=== PATIENT | male | born 1985 ===

== ENCOUNTER 2016-12-08 12:35 | Observation (INO) | payer OTHER ==
[2016-12-08] MEDS ORDERED: NS 0.9% 1000 ML* 1,000 ML IV ONE (12:48)
[2016-12-08] MEDS ORDERED: Midazolam* 1 MG/ML 5 ML VIAL (5 MG) ONE (12:49)
[2016-12-08] MEDS ORDERED: fentaNYL* 50 MCG/ML 2 ML VIAL (100 MCG VIAL) ONE (12:49)
[2016-12-08] MEDS ORDERED: Heparin 2 UNITS/ML IVPREMIX* 2,000 ML IV ONE (12:50)
[2016-12-08] MEDS ORDERED: nitroGLYCERIN DRIP* 250 ML ONE (12:50)
[2016-12-08] MEDS ORDERED: Lidocaine 1% INJ* 10 MG/ML 30 ML SDV ONE (12:50)
[2016-12-08] MEDS ORDERED: Iohexol 350 (CONTRAST) 200 ML MDV IV ONE (12:50)
[2016-12-08] MEDS ORDERED: Heparin VIAL(*) 5000 UNITS/ML VIAL (FIVE THOUSAND) ONE (12:50)
[2016-12-08] MEDS ORDERED: Heparin VIAL(*) 5000 UNITS/ML VIAL (FIVE THOUSAND) IV ONE (12:51)
[2016-12-08] MEDS ORDERED: Heparin(*) 1000 UNIT/ML 10 ML VIAL CATH LAB IV ONE (12:54)
[2016-12-08 12:55] LABS: Hematocrit 48 % (42-52); Hemoglobin 16.1 g/dl (14.0-18.0); Mean Corpuscular HGB Conc 33 g/dl (31-36); Mean Corpuscular Hemoglobin 29 pg (27-31); Mean Corpuscular Volume 87 fL (80-94); Mean Platelet Volume 8 um3 (7.4-10.4); Red Blood Count 5.54 10^6/ul (4.0-5.4); Red Cell Distribution Width 14 % (10.5-15); White Blood Count 6.9 10^3/ul (3.5-10.8)
[2016-12-08] MEDS ORDERED: VERAPAMIL 2.5 MG/ML 4 ML VIAL ONE (13:08)
[2016-12-08 13:15] LABS: Albumin 4.6 g/dL (3.2-5.2); BUN/Creatinine Ratio 11.2 (8-20); Calcium 9.7 mg/dL (8.6-10.3); EGFR Non-African American 80.1 (>60); Globulin 2.8 g/dL (2-4); Potassium 3.7 mmol/L (3.5-5.0); Total Bilirubin 0.7 mg/dL (0.2-1.0); Total Protein 7.4 g/dL (6.4-8.9)
--- NOTE | 2016-12-08 13:17 | RAD ---
INDICATION: Chest pain. COMPARISON: There are no prior studies available for comparison. TECHNIQUE: A portable view of the chest was obtained. FINDINGS: Cardiac and mediastinal contours appear to be within normal limits. The lungs are underinflated and clear. No pleural effusion is seen. IMPRESSION: NO EVIDENCE FOR ACUTE DISEASE.
[2016-12-08] MEDS ORDERED: NS 0.9% 1000 ML* 1,000 ML IV SCH (14:15)
[2016-12-08] MEDS ORDERED: Acetaminophen TAB* 325 MG PO PRN (14:47)
[2016-12-08] MEDS ORDERED: Omeprazole CAP* 20 MG PO ONE (17:30)
--- NOTE | 2016-12-08 17:32 | RAD ---
HISTORY: Epigastric pain after eating, right upper quadrant pain COMPARISONS: None TECHNIQUE: Multiple transverse and longitudinal ultrasound images were obtained of the right upper quadrant of the abdomen using grayscale and color Doppler imaging. FINDINGS: LIVER: The liver is diffusely echogenic and coarse in echotexture, with decreased acoustic transmission. The liver is otherwise normal in shape, size, and contour. There is normal hepatopedal flow of the portal vein on Doppler imaging. BILIARY TREE: There is no intrahepatic or extrahepatic biliary dilatation. The common duct measures 0.4 cm. GALLBLADDER: The gallbladder is well-visualized. There is no cholelithiasis, gallbladder wall thickening, pericholecystic fluid, or sonographic Azul sign. PANCREAS: The pancreas is obscured by overlying bowel gas. RIGHT KIDNEY: The right kidney is normal in shape, size, contour, and echogenicity. There is mild right pelviectasis. The right kidney measures 10.6 x 6.2 x 5.3 cm. AORTA AND IVC: The aorta and IVC are unremarkable. FLUID: There are no pleural effusions. There is no free fluid within the hepatorenal recess. OTHER FINDINGS: The bladder is unremarkable with bilateral ureteral jets IMPRESSION: 1. FATTY LIVER. 2. MILD RIGHT HYDRONEPHROSIS.
--- NOTE | 2016-12-08 17:47 | ED ---
Ever Sahu Adam, scribed for Mya Crump MD on 12/08/16 at 1257 . HPI Chest Pain - HPI Summary HPI Summary: Pt is a 31 year old male presenting with CP. The pain set on yesterday and it has been constant all morning today. Pt also c/o diaphoresis, fatigue, and anxiety. He reports a Hx of panic attacks and states that this feels similar. After arriving at [facility] the pt had an episode of syncope in which he began to twitch and became unresponsive for several seconds. EMS gave pt ASA en route to ED. Pt has PMHx of HTN and HLD. No FMHx. - History of Current Complaint Chief Complaint: EDChestPainROMI Time Seen by Provider: 12/08/16 12:47 Hx Obtained From: Patient Onset/Duration: Started Days Ago, Atraumatic, Still Present Timing: Constant Initial Severity: Moderate Current Severity: Moderate Chest Pain Location: Diffuse Aggravating Factor(s): Nothing Alleviating Factor(s): Nothing Associated Signs and Symptoms: Positive: Anxiety, Diaphoresis, Other: - Syncope , fatigue - Allergy/Home Medications Allergies/Adverse Reactions: Allergies Allergy/AdvReac Type Severity Reaction Status Date / Time Codeine Allergy Unknown Verified 11/06/15 09:06 Reaction Details Home Medications: Home Medications Atenolol [Atenolol] 25 mg PO DAILY 12/08/16 [History Confirmed 12/08/16] PMH/Surg Hx/FS Hx/Imm Hx Cardiovascular History: Reports: Hx Hypercholesterolemia, Hx Hypertension Infectious Disease History: No Infectious Disease History: Denies: Traveled Outside the [place] in Last 30 Days - Family History Known Family History: Positive: None - Patient denies any FMHx - Social History Occupation: Unemployed Lives: With Family - Father Alcohol Use: None Hx Substance Use: No Substance Use Type: Reports: None Hx Tobacco Use: No Smoking Status (MU): Never Smoked Tobacco Have You Smoked in the Last Year: No Review of Systems Positive: Fatigue, Skin Diaphoresis Positive: Chest Pain Positive: Syncope Positive: Anxious All Other Systems Reviewed And Are Negative: Yes Physical Exam Triage Information Reviewed: Yes Vital Signs On Initial Exam: Initial Vitals Temp Pulse Resp BP Pulse Ox 97.4 F 79 24 124/72 100 12/08/16 12:35 12/08/16 12:35 12/08/16 12:35 12/08/16 12:35 12/08/16 12:35 Vital Signs Reviewed: Yes Appearance: Positive: Well-Appearing, No Pain Distress Skin: Positive: Warm, Skin Color Reflects Adequate Perfusion, Dry Eyes: Positive: EOMI, YOLETTE ENT: Positive: Pharynx normal, TMs normal Neck: Positive: Supple, Nontender Respiratory/Lung Sounds: Positive: Clear to Auscultation, Breath Sounds Present. Negative: Rales, Rhonchi, Wheezes Cardiovascular: Positive: RRR. Negative: Murmur, Rub Abdomen Description: Positive: Nontender, Soft. Negative: Distended, Guarding Bowel Sounds: Positive: Present Musculoskeletal: Positive: Strength/ROM Intact. Negative: Edema Left, Edema Right Neurological: Positive: Sensory/Motor Intact, Alert, Oriented to Person Place, Time, CN Intact II-III Psychiatric: Positive: Affect/Mood Appropriate Diagnostics - Vital Signs Vital Signs Temp Pulse Resp BP Pulse Ox 12/08/16 12:35 97.4 F 79 24 124/72 100 - Laboratory Lab Results: Lab Results 12/08/16 Range/Units 12:45 WBC 6.9 (3.5-10.8) 10^3/ul RBC 5.54 H (4.0-5.4) 10^6/ul Hgb 16.1 (14.0-18.0) g/dl Hct 48 (42-52) % MCV 87 (80-94) fL MCH 29 (27-31) pg MCHC 33 (31-36) g/dl RDW 14 (10.5-15) % Plt Count 250 (150-450) 10^3/ul MPV 8 (7.4-10.4) um3 Neut % (Auto) 76.5 (38-83) % Lymph % (Auto) 15.8 L (25-47) % [place] % (Auto) 6.9 (1-9) % Eos % (Auto) 0.4 (0-6) % Baso % (Auto) 0.4 (0-2) % Absolute Neuts (auto) 5.3 (1.5-7.7) 10^3/ul Absolute Lymphs (auto) 1.1 (1.0-4.8) 10^3/ul Absolute Monos (auto) 0.5 (0-0.8) 10^3/ul Absolute Eos (auto) 0 (0-0.6) 10^3/ul Absolute Basos (auto) 0 (0-0.2) 10^3/ul Absolute Nucleated RBC 0.01 10^3/ul Nucleated RBC % 0.1 Result Diagrams: 12/08/16 12:45 12/08/16 12:45 Lab Statement: Any lab studies that have been ordered have been reviewed, and results considered in the medical decision making process. - Radiology CXR Radiology Interpretation Completed By: Radiologist - IMPRESSION: NO EVIDENCE OF ACUTE DISEASE. - EKG 12:42 Cardiac Rate: NL - 67 BPM EKG Interpretation: ST elevation vs J point 12:53 Cardiac Rate: NL - 76 BPM EKG Interpretation: ST elevation vs J point - Additional Comments Diagnostic Additional Comments: Lactic Acid - 2.2 Troponin I - 0.00 Chest Pain Course/Dx - Course Course Of Treatment: STEMI called at 12:42.'. 31 yo male who's ekg sent from the field with machine reading of MT, read as Jpoint, with cp for over a day, while waiting to be placed in a bed pt became diaphoretic and had a syncopal episode. given this finding along with the ekg a stemi was called. Pt was evaluated by Dr. De Leon and taken to the minilab operator. - Diagnoses Provider Diagnoses: CHEST PAIN Discharge - Discharge Plan Condition: Stable Disposition: ADMITTED TO [facility] The documentation as recorded by the Ever jackson Adam accurately reflects the service I personally performed and the decisions made by me, Mya Crump MD.
[2016-12-08] MEDS: LORazepam TAB(*) 0.5 MG PO PRN (19:41)
--- NOTE | 2016-12-08 20:10 | RAD ---
HISTORY: Right facial changes COMPARISONS: None TECHNIQUE: Multiple contiguous axial CT scans were obtained of the head without intravenous contrast. FINDINGS: HEMORRHAGE/INFARCT: There is no hemorrhage or acute infarct. MASSES/SHIFT: There is no mass or shift. EXTRA-AXIAL SPACES: There are no extra-axial fluid collections. SULCI AND VENTRICLES: The sulci and ventricles are normal in size and position for the patient's stated age. CEREBRUM: There are no focal parenchymal abnormalities. BRAINSTEM: There are no focal parenchymal abnormalities. CEREBELLUM: There are no focal parenchymal abnormalities. VESSELS: The vessels are grossly normal. PARANASAL SINUSES: The paranasal sinuses are clear. ORBITS: The orbits are unremarkable. BONES AND SOFT TISSUE: No bone or soft tissue abnormalities are noted. OTHER: None IMPRESSION: NO ACUTE INTRACRANIAL PATHOLOGY.
--- NOTE | 2016-12-09 00:40 | CONS ---
EMERGENCY ROOM CARDIOLOGY CONSULTATION: DATE OF CONSULT: 12/08/16 REASON FOR CONSULT: ST-segment elevation and anterior wall myocardial infarction was called by Dr. Mya Crump, emergency room physician. HISTORY OF PRESENT ILLNESS: The patient is a 31-year-old gentleman with no prior known cardiac history. Specifically, denies any history of myocardial infarction, congestive heart failure with significant heart rhythm disturbance. The patient was in his usual state of health until Thursday when he started having epigastric discomfort. He thinks it may have happened in the afternoon after he had eaten baloney sandwiches. The discomfort was underneath the sternum, almost like a bubble sensation with some tenderness and at times he felt the bubble moved up a little bit. It was intermittent in nature, did not seem to have any specific activity that brought it on or anything that made it better. Today, when he got up he noticed that he had it from the morning he got up. He recently been started also on atenolol 25 mg a day for hypertension , so he took his pill around 10 in the morning. He went to work and to get to work he walked up the hill to [place]. When he got in he sat down and he was diaphoretic. He states it is not unusual from him to be diaphoretic walking up the hill, but this one seemed to last longer and he also felt dizzy as well. He went to see the nurse if he could set up an appointment and he was scheduled to see the nurse at 11:30. When he went to see the nurse, she suggested that he should call his regular doctor as he was concerned and he recommended the patient be transported to the emergency room. In the ambulance , there were 3 EKGs that were performed and there was a question of ST segment elevation in the inferior leads as well as J-point elevation in precordial leads. When he presented to the emergency room, he was still having active symptoms. According to Dr. Crump she states that the patient nearly passed out when he first came into the emergency room. He does not seem to remember that well. His cardiac risk factors include a history of hypertension. He denies any hyperlipidemia. He denies any diabetes. He denies any smoking history and he has no family history of early coronary artery disease. He has taken medication in the past with Effexor for anxiety. PAST SURGICAL HISTORY: Significant only for an appendectomy in 1997. With his symptoms not relenting and with him appearing somewhat white and pale in appearance and anxious about the ongoing discomfort, I discussed with him the potential for performing a heart catheterization to rule out the presence of significant coronary artery disease, although the potential of absence of coronary artery disease was clearly a possibility. He understood the risks and benefits and wished to proceed. REVIEW OF SYSTEMS: Pertinent to proceeding directly emergently to the cardiovascular laboratory included the absence of hematochezia, hematemesis, or hematuria. He had no previous history of renal insufficiency or renal failure. He did not have any history of stroke or TIA. PHYSICAL EXAMINATION: When I saw him in the emergency room revealed blood pressure 124/72, pulse 79 and regular, respirations 24, O2 saturation 100% on room air, afebrile. Neck was supple. No increased JVP. Carotid with good upstroke and volume without bruits. Conjunctivae are pink. Sclerae were clear. Lungs revealed no accessory muscle usage. There is good excursion. Lungs are clear to A and P. Heart revealed no visible heaves, no palpable heaves or thrills. Normal S1, S2, no significant S3, S4, or gallop. No significant systolic or diastolic murmur. Abdomen was soft, nontender. Of note , the epigastric area was not tender on my examination at that time. Extremities: Without clubbing, cyanosis, [place]enix pitting edema. Peripheral pulses were intact. Femoral pulse noted without bruits. Neuro: The patient is alert and oriented with normal mentation. Musculoskeletal: The patient moves all extremities appropriate. Psychological: The patient significantly anxious. Skin: The patient appear to be cool and slightly clammy with a pale complexion. DIAGNOSTIC STUDIES/LAB DATA: Electrocardiogram done revealed very subtle J- point elevation in V2, V3, V4, and V5 with no definitive reciprocal changes. Subtle inferior J-point elevation was seen as well. Repeat EKG showed consistent finding with 1 PVC seen. Blood work for laboratory results was just drawn. OVERALL ASSESSMENT: Mr. Gilbert now presents still appearing somewhat ill appearing complaining about the persistent chest pressure and heaviness sensation in the chest area. The risks and benefits of cardiac catheterization were explained to him and he understood and he wished to proceed to get a definitive answer regarding the presence or absence of coronary artery disease. I did explain that if it was absent, other possible causes would need to be considered regarding the etiology of this. He understood that we will adjust management pending results of the cardiac catheterization. CC: Dr. Monique Alvarez* [id number]/[facility] #: [id number] CELINE
--- NOTE | 2016-12-09 00:58 | HP ---
HISTORY AND PHYSICAL: DATE OF ADMISSION: 12/08/16 PRIMARY CARE PROVIDER: Dr. Alvarez. CHIEF COMPLAINT: Chest pain. HISTORY OF PRESENT ILLNESS: Mr. Gilbert is a 31-year-old male, who on the day prior to admission began having epigastric discomfort. He states that it became much worse after eating 2 Bologna sandwiches with mayonnaise on them at approximately 2 p.m. yesterday. The patient states the night prior to the onset of epigastric pain, he had chicken, also had mayonnaise in it. The patient states the pain was at low level when he went to bed last evening. When the patient woke up on the morning of admission, he states the pain had moved from epigastrium to the left side of his chest. He describes it as a dull constant pain. He presented to the emergency room because of that. The patient had no associated shortness of breath or nausea. In the emergency room , the patient suddenly felt as if he had a tremendous amount of anxiety. He felt drowsy. He became quite sweaty and the staff noted him to become pale. Nursing notes indicate that he went unresponsive; however, the patient states that he does not believe that he did. The patient at that point was rushed back to the ER room where an EKG was performed. A STEMI was called and the patient was taken to the catheterization lab. The patient underwent cardiac catheterization with Dr. De Leon who identified clean coronary arteries. At that point, the decision was made to have hospitalist admit the patient for evaluation. The patient now post catheterization states that he continues to have dull left-sided chest discomfort. He states the discomfort is worse when he has a feeling as if he needs to have a bowel movement. He has had a persistent sensation that he needs to have a bowel movement since having the catheterization. PAST MEDICAL HISTORY/PAST SURGICAL HISTORY: 1. Appendectomy. 2. Hypertension. MEDICATIONS: Atenolol 25 mg p.o. daily. ALLERGIES: CODEINE. FAMILY HISTORY: Mom is living, she is 63, has hypothyroidism, hypertension, and PTSD. Dad is living, he is 64, has bipolar disorder. SOCIAL HISTORY: The patient is a life-long nonsmoker. He does not drink alcohol. He does not use any recreational drugs. He is a student at [employer]. He is not . He has no children. He indicates that his mom would be his healthcare proxy. REVIEW OF SYSTEMS: A complete 11-system review of systems was obtained. Pertinent positives and negatives are as per HPI and otherwise negative. PHYSICAL EXAMINATION GENERAL: The patient is a well-developed, young male lying flat in a stretcher , in no acute distress. VITAL SIGNS: Blood pressure 132/74, pulse 84, respirations 18, temp 98.8, O2 sat 100% on room air. HEENT: Pupils are equal, they are round. Extraocular muscles are intact. Oropharynx is clear. Oral mucosa is moist. There is no submandibular, cervical , or supraclavicular adenopathy. NECK: Thyroid is not enlarged. No thyroid nodules are noted. LUNGS: Clear anteriorly in the bilateral bases. CARDIAC: Normal S1, S2. Regular rate and rhythm. I do not appreciate any murmurs. ABDOMEN: Bowel sounds are present. Abdomen is soft, nontender, nondistended. MUSCULOSKELETAL: There is no cyanosis or clubbing of the digits. There is full active range of motion of the upper extremities. Lower extremity range of motion is not tested as the patient is immediately post catheterization. NEURO: Cranial nerves II through XII are grossly intact. Sensation is intact to light touch throughout. Strength is 5/5 and symmetric in the upper extremities. Lower extremity strength not tested due to being post cath. PSYCH: The patient is alert, he is oriented x3. He appears quite anxious. SKIN: Warm and dry. There are no rashes. DIAGNOSTIC STUDIES/LAB DATA: WBC 6.9, hemoglobin 16.1, hematocrit 48, platelets 250. INR 0.94. D-dimer less than 200. Sodium 134, potassium 3.7, chloride 101, CO2 22, BUN 12, creatinine 1.07, glucose 112, lactic acid 2.2, calcium 9.7. Bilirubin 0.7, AST 28, ALT 54, alk phos 43. CPK 147. CK-MB 4.2. Troponin 0. BNP 19. Albumin 4.6. EKG reveals normal sinus rhythm with possible anterior ST elevation. Chest x-ray: No evidence for acute disease. ASSESSMENT AND PLAN: Mr. Gilbert is a 31-year-old male, who presented to the emergency room with complaints of left-sided chest discomfort with an EKG suspicious for possible ST-elevation myocardial infarction, who underwent emergent cardiac catheterization with identification of clean coronary arteries and is being admitted to the hospitalist service for evaluation of noncardiac chest pain and possible syncopal episode in the emergency room. 1. Chest pain: Etiology of this is not completely clear. I am suspicious that this may be related to gallbladder disease. The patient states his symptoms began after eating fatty foods on the day prior to admission. The patient will undergo a gallbladder ultrasound. His symptoms will be monitored. If the gallbladder ultrasound is unrevealing, GI evaluation could be considered. The patient does question whether or not an ulcer could be causing his discomfort. This is a possibility; however, he does not give a history of any nonsteroidal anti- inflammatory drug use. The patient will, however, be started on omeprazole as he does complain of acid reflux-type symptoms from time to time. 2. Possible syncopal episode: The patient again states that he did not go unresponsive; however, this is what is documented in the nursing notes. I am suspicious that this may be vasovagal in nature. The patient will be monitored on telemetry. He will undergo transthoracic echocardiogram and a CT of the brain will be obtained. Anxiety seems to be the biggest issue at this time. 3. Hypertension: The patient's blood pressure is under good control. He will be maintained on his usual dose of atenolol. 4. DVT prophylaxis: According to the Adult Thrombosis Prophylaxis Risk Factor Assessment Guide, the patient has a total risk factor score of 1 making him low risk. Ambulation will be utilized as DVT prophylaxis. 5. Code status is full and again, the patient indicates that his mom is his healthcare proxy. TIME SPENT: Sixty-five minutes was spent admitting this patient. CC: Dr. Alvarez* [id number]/[facility] #: [id number] CELINE
[2016-12-09] MEDS: LORazepam TAB(*) 0.5 MG PO PRN (05:43)
[2016-12-09] MEDS ORDERED: Omeprazole CAP* 20 MG PO SCH (06:00)
--- NOTE | 2016-12-09 07:24 | CATH ---
CARDIAC CATHETERIZATION REPORT: DATE OF PROCEDURE: 12/08/2016 - ROOM 3451 INDICATION FOR PROCEDURE: A STEMI alert called by emergency room physician, Dr. Mya Crump, with the patient with chest discomfort, syncopal episode, abnormal EKG. PROCEDURE: Left heart cath, left ventriculography, coronary arteriography. DESCRIPTION OF PROCEDURE: The patient was interviewed and examined in the emergency room where the risks and benefits were explained. He understood the procedure and wished to proceed. The patient was brought to the cardiovascular laboratory where a formal time- out was performed. The patient was prepped and draped in a sterile fashion. The right groin area was anesthetized with 1% lidocaine. The right femoral artery was cannulated with an anterior-only wall approach and a 5-Cypriot introducer was placed. Coronary arteriography was performed utilizing a 5- Cypriot 4-Ambika left coronary catheter and a 5-Cypriot 4-Ambika right coronary catheter. Central aortic pressure was recorded using an angled pigtail catheter advanced to the ascending aorta where the pressure was recorded. The catheter was then passed across the aortic valve into the left ventricle where left ventricular pressure was recorded. Left ventriculography was performed utilizing a total of 24 cc of Omnipaque dye at a rate of 12 cc per second. The catheter was then pulled back across the aortic valve to recheck gradient. At the end of the case, an injection was made into the right femoral sheath to assess the eligibility to utilize closure device. It was found to be acceptable for this and as such, a 5-Cypriot Mynx closure device was deployed with good hemostasis. The total contrast used was 85 cc of Omnipaque dye. The radiation exposure included 3.3 minutes of fluoro time. The air kerma radiation was 342 milligray. The DAP radiation was 2032 microgray per sq. m. RESULTS: LEFT HEART CATHETERIZATION: Revealed central aortic pressure of 132/89 with a mean of 110. Left ventricular pressure 131 over left ventricular end-diastolic pressure of 13. LEFT VENTRICULOGRAPHY: Performed in the GUARDADO projection, revealed symmetrical contraction of the left ventricle with no focal wall motion abnormalities. Overall ejection fraction being 55% to 60%. CORONARY ARTERIOGRAPHY: A. Left coronary artery: 1. Left main: No significant stenosis, short in nature. 2. Left anterior descending artery: Left anterior descending artery supplied multiple diagonal branches extending to the apical region on to the distal inferior wall. There was no significant stenosis seen throughout the course of the vessel. 3. Circumflex artery: A nondominant vessel supplying a high first obtuse marginal branch followed by a second bifurcating obtuse marginal branch. The artery then continued on in the AV groove supplying left atrial branches. There was no significant stenosis seen throughout the course of the vessel. B. Right coronary artery: The right coronary artery supplied the posterior descending artery and several thin posterior left ventricular branches. There was no significant stenosis seen throughout the course of the vessel. OVERALL ASSESSMENT: Normal left ventricular systolic function with normal left ventricular end- diastolic pressure with no significant coronary artery disease noted. Given these findings, I do not believe his chest discomfort has a cardiac etiology. We will ask the hospitalist to get involved with the case to look for other possible causes for his chest discomfort. With respect to his syncopal episode, he just recently started 25 mg of atenolol and that along with a potential vasovagal episode from anxiousness in general, which he admits he is, may have caused a pause long enough to produce syncope. He will be most likely on the telemetry to watch for potential other pauses, but at this point in time, I would avoid using atenolol for blood pressure control and consider other possible drugs such as diuretics as a first-line agent. CC: Dr. Monique Alvarez* [id number]/[facility] #: [id number] CELINE
[2016-12-09] MEDS ORDERED: Atenolol TAB* 25 MG PO SCH (09:00)
--- NOTE | 2016-12-09 10:27 | ECHO ---
Patient: GORAN NGO [facility] Rec#: [id number] : 1985 Date: 12/09/2016 Age: 31y Height: 180.3 cm / 71.0 in Weight: 102.1 kg / 225.0 lbs Sex: M BSA: 2.2 Room#: [facility] Admit Date#: 12/08/2016 Type: Inpatient Referring: Linda Fink DO Reading: Travis De Leon MD Metal Buffer: Tia Mckenna RN RDCS CC: Monique Alvarez MD Transthoracic Echocardiogram Indication: Syncope BP: 130/72 HR: 81 Rhythm: NSR Findings History: HTN, anxiety Technical Comments: The study is technically limited due to patient body habitus. Completed at 0945. Left Ventricle: The left ventricular chamber size is normal. There is no left ventricular hypertrophy. Global left ventricular wall motion and contractility are within normal limits. Left ventricular systolic function is at the lower limits of normal. Visually estimated LVEF is 50 %. Normal left ventricular diastolic filling is observed. Left Atrium: The left atrial chamber size is normal. Right Ventricle: The right ventricular cavity size is normal. The right ventricular global systolic function is low normal. Right Atrium: The right atrial cavity size is normal. Aortic Valve: The aortic valve is trileaflet. The aortic valve leaflets are mildly thickened. There is a trace of aortic regurgitation. There is no evidence of aortic stenosis. Mitral Valve: The mitral valve leaflets are mildly thickened. There is a prominent redundant chordae. Mild subvalvular thickening of the mitral valve is visualized. There is trace to mild mitral regurgitation. There is no evidence of mitral stenosis. Tricuspid Valve: The tricuspid valve leaflets are normal. There is trace tricuspid regurgitation. Unable to estimate the right ventricular systolic pressure. Pulmonic Valve: The pulmonic valve appears normal. There is trace to mild pulmonic regurgitation. There is no pulmonic stenosis. Pericardium: There is no significant pericardial effusion. A pericardial fat pad is visualized. Aorta: There is no dilatation of the ascending aorta. There is no dilatation of the aortic arch. There is no dilation of the aortic root. Pulmonary Artery: The main pulmonary artery appears normal. Venous: The venous system is not well visualized. The inferior vena cava is not visualized. Conclusions The left ventricular chamber size is normal. Left ventricular systolic function is at the lower limits of normal. Visually estimated LVEF is 50 %. Normal left ventricular diastolic filling is observed. The right ventricular cavity size is normal. The right ventricular global systolic function is low normal. There is a trace of aortic regurgitation. The mitral valve leaflets are mildly thickened. There is a prominent redundant chordae. Mild subvalvular thickening of the mitral valve is visualized. There is trace to mild mitral regurgitation. There is trace tricuspid regurgitation. There is trace to mild pulmonic regurgitation. No reports of prior studies offered for comparison. Measurements Name Value Normal Range RVDdMajor (2D) 2.4 cm (2.2 - 4.4) RAd ISD 4CH 4.6 cm (3.4 - 4.9) RA (A4C)W 3.1 cm (2.9 - 4.6) IVSd (2D) 1 cm (0.6 - 1) LVPWd (2D) 1 cm (0.6 - 1) LVIDd (2D) 3.6 cm (3.6 - 5.4) LVIDs (2D) 2.6 cm - LV FS (2D) 28 % (25 - 45) Aortic Annulus 2.4 cm (1.4 - 2.6) Ao root diameter (2D) 3.4 cm (2.1 - 3.5) Ascending Ao 2.8 cm (2.1 - 3.4) Aortic arch 2.3 cm (1.8 - 3.4) LA dimension (AP) 2D 3 cm (2.3 - 3.8) LAd ISD 4CH 4.8 cm (2.9 - 5.3) LA ISD 4CH W 3.2 cm (2.5 - 4.5) Name Value Normal Range LA ESV SP 4CH (A/L) 26 ml - LA ESV SP 2CH (A/L) 40 ml - LA ESV BP (A/L) 34 ml - LA ESV BP (A/L) index 15.1 ml/m2 - LA ESV SP 4CH (MOD) 24 ml - LA ESV SP 2CH (MOD) 37 ml - Name Value Normal Range MV E-wave Vmax 0.79 m/sec - MV deceleration time 197 msec - MV A-wave Vmax 0.61 m/sec - MV E:A ratio 1.3 ratio - LV septal e' Vmax 0.1 m/sec - LV lateral e' Vmax 0.16 m/sec - LV E:e' septal ratio 7.9 ratio - LV E:e' lateral ratio 4.9 ratio - Name Value Normal Range AV Vmax 1.2 m/sec - LVOT Vmax 1.1 m/sec - ROSIE Vmax 1.2 m/sec - Name Value Normal Range PV Vmax 0.76 m/sec -
[2016-12-09 11:36] VITALS: BP 113/65
[2016-12-09] MEDS ORDERED: Simethicone CHEW TAB* 80 MG PO PRN (12:53)
[2016-12-09 13:11] LABS: C Reactive Protein 4.92 mg/L (< 5.00)
--- NOTE | 2016-12-10 06:27 | DS ---
DISCHARGE SUMMARY: DATE OF ADMISSION: 12/08/16 DATE OF DISCHARGE: 12/09/16 PRIMARY CARE PROVIDER: Monique Alvarez MD PRINCIPAL DIAGNOSES: 1. Noncardiac chest pain - likely gas pain. 2. Vasovagal syncope. SECONDARY DIAGNOSIS: Hypertension. DISCHARGE MEDICATION: Amlodipine 5 mg p.o. daily. HOSPITAL COURSE: Mr. Gilbert is a 31-year-old male who presented to the emergency room with complaints of left-sided chest pain. The patient's pain began the day prior to admission in the epigastric region following ingesting 2 baloney sandwiches with mayonnaise. Pain then changed to the left side of his chest. In the ER, the patient had an EKG that was concerning for mild ST elevation and was taken emergently to the catheterization lab for ST elevation GA evaluation. The patient was found to have completely clean coronary arteries. I was requested that the hospitalist service then admit the patient for evaluation. The patient was admitted for further evaluation of his chest discomfort as well as possible syncopal episode in the emergency room. The patient did undergo gallbladder ultrasound, which revealed fatty infiltration of the liver and mild right hydronephrosis, otherwise no gallbladder issues. The patient did undergo a transthoracic echocardiogram that revealed an EF of 50 %. Normal wall motion was identified. No significant valvular abnormalities were noted. While recovering in the catheterization lab, the patient complained of a halo of light in his right vision. He underwent a CT scan of the brain for this. This revealed no acute intracranial pathology. Ultimately after speaking with the patient more on the day of discharge, it was felt that his pain is likely digestive in nature. I suspect this maybe gas. He states that he feels tremendous amount of movement in his stomach. He just states that this has never prolonged like this. In terms of the syncopal episode, I suspect this was vasovagal in nature. As he was on atenolol, this could have exaggerated the response and therefore the atenolol has been discontinued and he will be started on amlodipine 5 mg p.o. daily. The patient was up and ambulating around the halls without any complaints prior to discharge. The patient seemed to have a significant amount of anxiety and I questioned this maybe significant factor in his symptoms. The patient had been on Effexor in the past, stopped this 6 months ago. I have recommended that he return to the mental health clinic to consider restarting this medication. The patient is agreeable to this. FOLLOWUP CONCERNS: The patient is being discharged home today, 12/09/16. ACTIVITY: Activity level is per post-cath instructions. CONDITION ON DISCHARGE: Stable. DIET: Regular. The patient is to follow up with Dr. Alvarez in the next 4 to [address] Bailon on 12/15/16 at 2:40 p.m. for a groin check. TIME SPENT: Thirty-five minutes was spent discharging this patient. CC: Dr. Alvarez; Dr. De Leon * [id number]/CPS #: [id number] MTDD
== END 2016-12-09 15:30 | disposition home or self-care (01) ==
LOC: ED 12:35 → MEDTELE 14:47
PROVIDERS: ADMIT Hospitalist; ATTEND Hospitalist
DX: R07.89 Other chest pain (principal); R55 Syncope and collapse; I10 Essential (primary) hypertension; Z88.5 Allergy status to narcotic agent; K76.0 Fatty (change of) liver, not elsewhere classified; N13.30 Unspecified hydronephrosis; R94.31 Abnormal electrocardiogram [ECG] [EKG]
CPT/HCPCS: 36415; 70450; 71010; 76705; 80053; 82550; 82553; 83605; 83721; 83874; 83880; 84484; 85025; 85379; 85610; 85730; 86140; 86850; 86900; 86901; 93005; 93306; 93458; 99284; A9270-GY; C1887; G0378; J1644; J2001; J2250; J3010